=== PATIENT | female | born 1970 | race Caucasian/White ===

== ENCOUNTER → 2021-02-19 11:42 | Outpatient (CLI) | payer BC, SELFPAY ==
--- NOTE | 2021-02-19 11:48 | XR_ITS ---
PROCEDURE: XR HIP LT 2-3V W/PELVIS CLINICAL INDICATION: LT HIP PAIN COMPARISON: No exams were available for comparison FINDINGS: No fracture or dislocation is evident. No significant degenerative change. No lytic or blastic change. Unremarkable soft tissues. There is an IUD in place IMPRESSION: Negative left hip Dictated by: Jose R Harrison MD 02/19/2021 15:13 Jose R Harrison MD in [place] 02/19/2021 15:13
--- NOTE | 2021-02-19 11:48 | XR_ITS ---
PROCEDURE: XR LUMBAR SPINE MIN 4V CLINICAL INDICATION: ACUTE LT SIDED LOW BACK PAIN W/ LEFT SIDED SCIATICA COMPARISON: No exams were available for comparison FINDINGS: Normal alignment. No fracture or dislocation. No lytic or blastic change. The disc spaces are well preserved. There is some minimal anterolisthesis of L5 on S1 5 mm. Vascular calcification is present. There is some mild facet arthritic changes at L5-S1. SI joints have an unremarkable appearance Other findings:None. IMPRESSION: Mild anterolisthesis at L5-S1 with mild facet arthritic changes at that level as well Dictated by: Jose R Harrison MD 02/19/2021 15:15 Jose R Harrison MD in [place] 02/19/2021 15:15
== END ==
PROVIDERS: PCP Nurse Practitioner Family; Visit Provider Nurse Practitioner Family
DX: M25.552 Pain in left hip (principal); M54.42 Lumbago with sciatica, left side
CPT/HCPCS: 72110; 73502

== ENCOUNTER 2021-03-04 12:49 | Emergency (ER) | payer BC, SELFPAY ==
[2021-03-04 12:49] VITALS: BP 126/92; PULSE 82; RESP 20; TEMP 36.7; O2SAT 97; BMI 38.7
--- NOTE | 2021-03-04 14:02 | [facility].EDUTC ---
[facility] [place] Clinical Impression: Exposure to COVID-19 virus Disposition: Home, Self-Care Condition on Discharge: Good Instructions: DI for COVID-19 (Suspected or Confirmed ), Preventing the Spread of Coronavirus Discharge Instructions Additional Instructions: Drink plenty of fluids. Take tylenol for pain or fever. Return if you begin to have difficulty breathing. Follow up with your regular doctor. GO TO THE ER FOR ANY WORSENING SYMPTOMS Prescriptions: Ondansetron [Zofran 4mg ODT] 4 mg PO Q8HP PRN #12 tab.rapdis PRN Reason: Nausea Transmission Status: Received by [facility] #[id number] Referrals: Sami Edward MD [Primary Care Provider] - Forms: Work/School Release Time of Disposition: 14:04 Medical Decision Making - Medical Records Medical records reviewed: No: I reviewed the patient's medical records. - [place] Inquiry Pt receiving controlled substance: No Vital Signs: 03/04/21 12:49 03/04/21 14:21 Temperature 98.1 F 98.1 F Temperature Source Oral Oral Pulse Rate 82 Pulse Rate [Left Radial] 82 Respiratory Rate 20 20 Blood Pressure 126/92 H Blood Pressure [Right Arm] 126/92 H Blood Pressure Mean [Right Arm] 103 Blood Pressure Source Automatic Cuff Blood Pressure Source [Right Arm] Automatic Cuff Blood Pressure Position Sitting Blood Pressure Position [Right Arm] Sitting 02 Sat by Pulse Oximetry 97 Oxygen Delivery Method Room Air Room Air [facility] [place] - General Stated complaint: covid test Time Seen by Provider: 03/04/21 14:02 Mode of Arrival: Ambulatory Source of Information: Patient Limitations: No Limitations Description of Symptoms (Recalled from Triage Doc. by RN): stuffy nose and mild Aleman for a few days. Son tested postive HEENT Symptoms (Recalled from RN notes): Yes Resp Symptoms (Recalled from RN notes): No Skin Symptoms (Recalled from RN notes): No MS Symptoms (Recalled from RN notes): No Functional Status (Recalled from RN notes): wnl - History of Present Illness Provider Complaint: She states that she has been exposed to Covid-19 around 4 days ago. She denies any symptoms so far. She has not been vaccinated. - Related Data Previous Rx's Medication Instructions Recorded Ondansetron [Zofran 4mg ODT] 4 mg PO Q8HP PRN #12 tab.rapdis 03/04/21 Allergies Allergy/AdvReac Type Severity Reaction Status Date / Time No Known Allergies Allergy Verified 03/04/21 13:58 - Worker's Comp Is this a Worker's Comp case?: No [facility] History - Hepatitis A Screen Drug use history?: No High risk sexual behaviors?: No History of sexually transmitted infection?: No Currently employed?: No Childcare worker?: No Do you have indoor plumbing?: Yes Do you have electricity?: Yes Attestation statement:: This patient has been screened for Hepatitis A risk factors. I have reviewed the patient's past medical history: Yes ROS Obtained: Yes All systems reviewed & no additional complaints - Constitutional Constitutional: Reports system reviewed and no additional complaints, except as docu - Eyes Eyes: Reports system reviewed and no additional complaints, except as docu - ENT Ears, Nose, Mouth, and Throat: Reports system reviewed and no additional complaints, except as docu - Cardiovascular Cardiovascular: Reports system reviewed and no additional complaints, except as docu - Respiratory Respiratory: Denies change in phlegm color Physical Exam - General General appearance: alert, in no apparent distress - Head Head exam: atraumatic, normocephalic, normal inspection - Eye Eye exam: Present: normal appearance, PERRL, EOMI - ENT ENT exam: Present: normal exam, normal oropharynx, mucous membranes moist, TM's normal bilaterally, normal external ear exam - Neck Neck exam: Present: normal inspection, full ROM, trachea midline. Absent: meningismus, lymphadenopathy - Chest Chest inspection: Present: normal inspection, symmetric ches
[2021-03-04 14:21] VITALS: BP 126/92; PULSE 82; RESP 20; TEMP 36.7; O2SAT 97
--- NOTE | 2021-03-04 20:23 | PC.NURSE ---
Pt called and given covid positive results
== END 2021-03-04 14:21 | disposition home or self-care (01) ==
PROVIDERS: Emergency Provider Nurse Practitioner Family; PCP Family Medicine
DX: U07.1 COVID-19 (principal)
CPT/HCPCS: 99202; G0463; U0003

== ENCOUNTER → 2021-03-29 13:58 | Outpatient (CLI) | payer BC, SELFPAY ==
--- NOTE | 2021-03-29 14:10 | XR_ITS ---
PROCEDURE: XR CHEST 2V CLINICAL HISTORY: COVID ,SOB COMPARISON: No exams were available for comparison FINDINGS: The cardiomediastinal silhouette and pulmonary vascularity are within normal limits. The lungs are clear without infiltrates, suspicious nodules, or pleural effusions. There is a small parenchymal opacity adjacent to the cardiac apex and may be due to summation artifact from pericardial fat pad and rib overlap. Stability may be confirmed with follow-up. No acute bony findings. IMPRESSION: No acute findings. Dictated by: Jose R Harrison MD 03/29/2021 14:35 Jose R Harrison MD in [place] 03/29/2021 14:35
[2021-03-29 16:26] LABS: Basophils # 0.2 K/mm3 (0-0.2); Basophils % 1.8 % (0.1-2.0); Eosinophils # 0.2 K/mm3 (0.0-0.4); Eosinophils % 1.8 % (0.1-12.0); Hematocrit 38.3 % (37.0-47.0); Hemoglobin 13.2 g/dL (12.2-16.2); Lymphocytes # 5.2 K/mm3 (0.7-4.5); Lymphocytes % 46.3 % (10-50); Mean Corpuscular HGB Conc 34.4 g/dL (31.8-35.4); Mean Corpuscular Hemoglobin 29.9 pg (27.0-31.2); Mean Platelet Volume 8.6 fl (7.4-10.4); Monocytes # 0.7 K/mm3 (0.1-1.0); Monocytes % 6.1 % (1.7-9.3); Neutrophils % 44.1 % (37.0-80.0); Platelet Count 363 K/mm3 (142-424); Red Cell Distribution Width 13.6 % (11.5-17.5); White Blood Count 11.3 K/mm3 (4.8-10.8)
[2021-03-29 16:39] LABS: D-Dimer 0.34 ug/mL (0.0-0.5)
[2021-03-29 16:44] LABS: Chloride 105 mmol/L (98-107); Potassium 4.5 mmoL/L (3.5-5.1); Sodium 139 mmol/L (136-145)
[2021-03-29 16:47] LABS: Alanine Aminotransferase 24 U/L (12-78); Albumin Level 4.3 g/dl (3.5-5.0); Albumin/Globulin Ratio 1.7 (1.1-1.8); Alkaline Phosphatase 79 U/L (38-126); Anion Gap 12.5 mEq/L (5-15); Aspartate Amino Transferase 26 U/L (14-36); Bilirubin,Total 0.8 mg/dl (0.2-1.3); Blood Urea Nitrogen 28 mg/dl (7-17); Calcium 9.7 mg/dl (8.4-10.2); Carbon Dioxide 26 mmol/L (22.0-30.0); Estimated Glomerular Filt Rate 76 ml/min (>60); GFR (African American) 92 ML/MIN (>60); Globulin 2.6 g/dL (1.3-3.2); Glucose 83 mg/dl (74-100); Total Protein,Serum 6.9 g/dl (6.3-8.2)
== END ==
PROVIDERS: PCP Nurse Practitioner Family; Visit Provider Nurse Practitioner Family
DX: U07.1 COVID-19 (principal); R06.02 Shortness of breath
CPT/HCPCS: 36415; 71046; 80053; 85025; 85378

== ENCOUNTER → 2021-04-16 10:14 | Outpatient (CLI) | payer BC, SELFPAY ==
--- NOTE | 2021-04-16 10:33 | ECG_ITS ---
APPROVED REPORT Exam: Resting ECG HR:67 bpm ECG Measurements Heart Rate 67 AXES AZ 162 P 64 QRSd 86 QRS -23 QT 388 T 38 QTc 409 Conclusion Normal sinus rhythm Possible Anterior infarct, age undetermined Abnormal ECG Electronically signed by : Pete Lopez MD 04/16/2021 10:44:20
[2021-04-16 11:45] LABS: Basophils # 0.1 K/mm3 (0-0.2); Basophils % 0.9 % (0.1-2.0); Eosinophils # 0.2 K/mm3 (0.0-0.4); Eosinophils % 1.9 % (0.1-12.0); Hematocrit 40.4 % (37.0-47.0); Hemoglobin 13.3 g/dL (12.2-16.2); Lymphocytes # 3.5 K/mm3 (0.7-4.5); Lymphocytes % 32.3 % (10-50); Mean Corpuscular Hemoglobin 30.6 pg (27.0-31.2); Mean Corpuscular Volume 92.6 fl (81-99); Mean Platelet Volume 7.7 fl (7.4-10.4); Monocytes # 0.5 K/mm3 (0.1-1.0); Monocytes % 4.5 % (1.7-9.3); Neutrophils # 6.5 K/mm3 (1.8-7.8); Neutrophils % 60.4 % (37.0-80.0); Platelet Count 359 K/mm3 (142-424); Red Blood Count 4.36 M/mm3 (4.20-5.40); Red Cell Distribution Width 14.3 % (11.5-17.5); White Blood Count 10.7 K/mm3 (4.8-10.8)
[2021-04-16 11:53] LABS: NT Pro Brain Natriuretic Pep. 93.8 pg/mL (0-125)
== END ==
PROVIDERS: Visit Provider Nurse Practitioner Family
DX: R06.02 Shortness of breath (principal); R60.9 Edema, unspecified
CPT/HCPCS: 36415; 83880; 85025; 93005

== ENCOUNTER → 2021-04-22 09:55 | Outpatient (CLI) | payer BC, SELFPAY ==
--- NOTE | 2021-04-22 09:59 | CA_ITS ---
APPROVED REPORT EXAM: Comprehensive 2D, Doppler, and color-flow Echocardiogram Cmo: Farhana Gage RVT Ht: 5 ft 3 in Wt: 215lbs BSA: 1.99 BP: 126/92 mmHg Indications: SOA,EDEMA,HX COVID 2D Dimensions LVOT 2.22 cm (M/F) 1.5-2.5 LA Volume 23.60 mL LA Volume Index 11.85 mL/m2 (M/F) 16-34 M-Mode Dimensions RVDd 2.68 cm (0.9-2.6) LA Diam 4.04 cm (1.9-4.0) LVDd 5.04 cm (3.5-5.7) Ao Diam 2.80 cm (2.0-3.7) LVDs 3.32 cm (3.5-5.7) IVSd 1.00 cm (0.6-1.1) PWd 0.54 cm (0.6-1.1) EF (Teich) 62.80% FS 34.10% EDV (Teich) 120.50 mL TAPSE 2.22 (<1.7) ESV (Teich) 44.80 mL LV Diastology E Decel Time 180.00 (160-240 msec) E/A Ratio 0.8 MED E' 6.50 (< 7 cm/sec) E'/MED E' Ratio 10.03 (>14) LAT E' 10.60 (<10 cm/sec) E/LAT E' Ratio 6.15 (>14) Aortic Valve AO Peak GR. 6.60 mmHg Mitral Valve MV E Max Osvaldo. 65.00 (40-130 cm/s) MV A Velocity 84.00 (40-130 cm/s) E/A Ratio 0.78 MV Decel. Time 180.00 (160-240 ms) MV PHT 53.00 ms Pulmonary Valve PV Peak Velocity 83.00 (50-150 cm/s) Tricuspid Valve TR P. Velocity 233.00 cm/s RAP Estimate 10.00 mmHg RVSP 31.70 mmHg Left Ventricle Left atrium is mildly enlarged, left ventricle is normal size, mild concentric left ventricular hypertrophy, visually estimated ejection fraction 55% with no regional wall motion abnormality, grade 1 diastolic dysfunction seen without tissue Doppler evidence of raise left atrial pressure. Right Ventricle Right atrium and right ventricle are qualitatively mildly enlarged with normal contractility. Aortic Valve Aortic valve is minimally thickened and fibrosed. There is no aortic stenosis or aortic insufficiency. Mitral Valve Mitral valve is grossly normal, there is trace mitral regurgitation. Tricuspid Valve Tricuspid valve grossly normal, there is trace tricuspid regurgitation, tricuspid regurgitation jet velocity is inadequate for calculation of the right ventricular systolic pressure. Pulmonic Valve Pulmonic valve is poorly visualized. Great Vessels Aortic root is normal size. Pericardium No significant pericardial effusion noted. Conclusion 1. Normal left ventricular size, visually estimated ejection fraction 55% with no regional wall motion abnormality, grade 1 diastolic dysfunction seen without tissue Doppler evidence of raise left atrial pressure. 2. Qualitatively mildly enlarged right ventricle with normal contractility 3. Trace mitral and tricuspid regurgitation. 4. No significant pericardial effusion noted. Electronically signed by : Quintin Thomas MD 04/23/2021 07:01:14
== END ==
PROVIDERS: PCP Nurse Practitioner Family; Visit Provider Nurse Practitioner Family
DX: R06.02 Shortness of breath (principal); R60.9 Edema, unspecified
CPT/HCPCS: 93306

== ENCOUNTER → 2023-05-18 16:50 | Outpatient (CLI) | payer BC, SELFPAY ==
[2023-05-18 16:40] LABS: Adenovirus,PCR Not Detected (NotDetected); Coronavirus 19, PCR Not Detected (NotDetected); Coronavirus 229E Not Detected (NotDetected); Coronavirus NL63 Not Detected (NotDetected); Coronavirus OC43 Not Detected (NotDetected); Coronovirus HKU1,PCR Not Detected (NotDetected); Human Metapneumovirus Not Detected (NotDetected); Influenza A, PCR Not Detected (NotDetected); Influenza AH1, 2009 Not Detected (NotDetected); Influenza AH1, PCR Not Detected (NotDetected); Influenza AH3,PCR Not Detected (NotDetected); Influenza B, PCR Not Detected (NotDetected); Parainfluenza 1, PCR Not Detected (NotDetected); Parainfluenza 2, PCR Not Detected (NotDetected); Parainfluenza 3, PCR Not Detected (NotDetected); Parainfluenza 4, PCR Not Detected (NotDetected); Respiratory Syncytial Virus Not Detected (NotDetected); Rhinovirus/Enterovirus Not Detected (NotDetected)
== END ==
PROVIDERS: PCP Nurse Practitioner Family; Visit Provider Nurse Practitioner Family
DX: J02.9 Acute pharyngitis, unspecified (principal); R05.9 Cough, unspecified
CPT/HCPCS: 87070; 87632; 87635

== ENCOUNTER 2023-08-17 15:29 | Outpatient (CLI) | payer BC, SELFPAY ==
--- NOTE | 2023-08-17 15:33 | XR_ITS ---
FINAL REPORT CLINICAL HISTORY: acute cough COMPARISON: 03/29/2021 FINDINGS: 2 views of the chest were obtained . The heart is normal in size. The mediastinum is within normal limits. There is mild bronchial wall thickening consistent with bronchitis. There is no pneumothorax. Osseous structures are unremarkable. IMPRESSION: Mild bronchial wall thickening consistent with bronchitis. Reviewed, Interpreted and Dictated by Leonard Denton III, MD Transcribed by Wanda Staton Authenticated and [facility]
== END 2023-08-17 23:59 ==
LOC: RAD 15:30
PROVIDERS: PCP Nurse Practitioner Family; Visit Provider Nurse Practitioner Family
DX: R05.1 Acute cough (principal)
CPT/HCPCS: 71046

== ENCOUNTER 2024-09-06 13:27 | Outpatient (CLI) | payer BC, SELFPAY | END 2024-09-06 23:59 | disposition home or self-care (01) | LOC: LAB.DROPOF 13:27 | PROVIDERS: PCP Nurse Practitioner Family; Visit Provider Nurse Practitioner Family | DX: R50.9 Fever, unspecified (principal); R53.83 Other fatigue | CPT/HCPCS: 87635 ==